=== PATIENT | male | born 1960 | race Two or more races ===

== ENCOUNTER 2017-10-27 16:32 | Emergency (ER) | payer OTHER ==
[~2017-10-27] VITALS: Ht 167.6 cm; Wt 90.7 kg
[2017-10-27 16:38] VITALS: BP 103/61
== END 2017-10-27 18:07 | disposition home or self-care (01) ==
LOC: ER 16:35
DX: M25.562 Pain in left knee (principal); F32.9 Major depressive disorder, single episode, unspecified; F17.200 Nicotine dependence, unspecified, uncomplicated
CPT/HCPCS: 73564-TC; A4606; Z7610

== ENCOUNTER 2020-04-17 12:04 | Emergency (ER) | payer OTHER ==
[~2020-04-17] VITALS: Ht 167.6 cm; Wt 81.6 kg
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
--- NOTE | 2020-04-17 12:20 | NUR ---
MD AT BEDSIDE FOR EVALUATION
[2020-04-17] MEDS ORDERED: ACETAMINOPHEN ES 500 MG TABLET PO ONE (12:30)
--- NOTE | 2020-04-17 12:47 | NUR ---
PC OUT FOR CT
--- NOTE | 2020-04-17 12:59 | NUR ---
PT BACK FROM CT
[2020-04-17 14:20] VITALS: BP 133/67
== END 2020-04-17 14:20 | disposition home or self-care (01) ==
LOC: ER 12:10
DX: M25.462 Effusion, left knee (principal); M25.571 Pain in right ankle and joints of right foot; M54.5 Low back pain; M25.551 Pain in right hip; F32.9 Major depressive disorder, single episode, unspecified; F17.200 Nicotine dependence, unspecified, uncomplicated; Z98.890 Other specified postprocedural states; V09.9XXA Pedestrian injured in unspecified transport accident, initial encounter; Y93.89 Activity, other specified; Y92.89 Other specified places as the place of occurrence of the external cause; Y99.8 Other external cause status
CPT/HCPCS: 73564-TC; 73610-TC

== ENCOUNTER 2020-04-17 14:35 | Emergency (ER) | payer OTHER ==
[~2020-04-17] VITALS: Ht 170.2 cm; Wt 81.6 kg
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
[2020-04-17] MEDS ORDERED: TDAP [DIPH/PERTUSSIS/TET] 0.5 ML VIAL IM ONE ×2 (15:00→15:02)
--- NOTE | 2020-04-17 15:13 | NUR ---
PT OUT FOR CT
--- NOTE | 2020-04-17 16:27 | NUR ---
at bedside for wound care
[2020-04-17 17:02] VITALS: BP 142/78
== END 2020-04-17 17:03 | disposition home or self-care (01) ==
LOC: ER 14:36
DX: S02.2XXA Fracture of nasal bones, initial encounter for closed fracture (principal); S01.21XA Laceration without foreign body of nose, initial encounter; F32.9 Major depressive disorder, single episode, unspecified; F17.200 Nicotine dependence, unspecified, uncomplicated; Z98.890 Other specified postprocedural states; W01.0XXA Fall on same level from slipping, tripping and stumbling without subsequent striking against object, initial encounter; Y93.89 Activity, other specified; Y92.89 Other specified places as the place of occurrence of the external cause; Y99.8 Other external cause status
CPT/HCPCS: 70450-TC; 70486-TC; 72125-TC; 90715

== ENCOUNTER 2020-05-13 10:25 | Emergency (ER) | payer OTHER ==
[~2020-05-13] VITALS: Ht 167.6 cm; Wt 93.9 kg
--- NOTE | 2020-05-13 10:35 | NUR ---
BIB SELF C/O R LEG ABSCESS FOR 1 WEEK. VS CHECKED. STABLE AWAITING MD LING. PT IS AFEBRILE
[2020-05-13 12:13] VITALS: BP 128/86
--- NOTE | 2020-05-13 12:13 | NUR ---
Patient discharged to home in stable condition. Written and verbal after care instructions given. Patient verbalizes understanding of instruction.
== END 2020-05-13 12:14 | disposition home or self-care (01) ==
LOC: ER 10:31
DX: L03.115 Cellulitis of right lower limb (principal); F32.9 Major depressive disorder, single episode, unspecified; F17.200 Nicotine dependence, unspecified, uncomplicated; Z98.890 Other specified postprocedural states; Z59.0 Homelessness

== ENCOUNTER 2020-10-10 12:18 | Emergency (ER) | payer OTHER ==
[~2020-10-10] VITALS: Ht 167.6 cm; Wt 89.4 kg
[2020-10-10] MEDS ORDERED: METH10TA2 PO (12:26)
[2020-10-10] MEDS ORDERED: [UNRECOGNIZED DRUG - REMARK] PO (12:26)
[2020-10-10] MEDS ORDERED: [UNRECOGNIZED DRUG - REMARK] PO (12:26)
--- NOTE | 2020-10-10 12:30 | NUR ---
BIB SELF C/O PRODUCTIVE COUGH FOR 1 WEEK. PATIENT A/OX4, BREATHING EVEN AND UNLABORED, NO SOB NOTED, NEEDS ATTENDED. ON ROOM AIR 96%
--- NOTE | 2020-10-10 12:37 | NUR ---
SEEN AND EXAMINED BY .
[2020-10-10] MEDS ORDERED: predniSONE 20 MG TABLET ONE (12:47)
[2020-10-10] MEDS ORDERED: ALBUTEROL FS 2.5 MG/3 ML VIAL.NEB ONE (12:53)
[2020-10-10] MEDS ORDERED: IPRATROPIUM NEB FS 0.5 MG/2.5 ML AMPUL.NEB ONE (12:53)
[2020-10-10] MEDS ORDERED: ALBUTEROL FS 2.5 MG/3 ML VIAL.NEB NEB ONE (13:00)
[2020-10-10] MEDS ORDERED: IPRATROPIUM NEB FS 0.5 MG/2.5 ML AMPUL.NEB NEB ONE (13:00)
[2020-10-10] MEDS ORDERED: predniSONE 20 MG TABLET PO ONE (13:00)
--- NOTE | 2020-10-10 13:05 | NUR ---
BREATHING TX STARTED
[2020-10-10 13:26] LABS: BASOPHILS % (AUTO) 0.6 % (0.0-2.0); EOSINOPHILS % (AUTO) 2.4 % (0.0-6.0); HEMATOCRIT 38 % (39-51); HEMOGLOBIN 12.5 g/dL (13.5-17.5); LYMPHOCYTES # (AUTO) 1.3 /CMM (0.8-4.8); LYMPHOCYTES % (AUTO) 25.9 % (20.0-44.0); MEAN CORPUSCULAR HGB CONC 33 g/dl (31.0-36.0); MEAN CORPUSCULAR VOLUME 90 fL (80-96); MONOCYTES # (AUTO) 0.2 /CMM (0.1-1.30); MONOCYTES % (AUTO) 4.8 % (2.0-12.0); NEUTROPHILS # (AUTO) 3.3 /CMM (1.8-8.9); NEUTROPHILS % (AUTO) 66.3 % (43.0-81.0); PLATELET COUNT (AUTO) 236 /CMM (150-450); RED BLOOD CELL COUNT(AUTO) 4.22 MIL/uL (4.5-6.0)
[2020-10-10 13:42] LABS: CALCIUM, SERUM 8.5 mg/dL (8.5-10.1); CARBON DIOXIDE 29 mmol/L (21-32); CHLORIDE 104 mmol/L (98-107); CREATININE 0.8 mg/dL (0.6-1.3); GLUCOSE 164 mg/dL (74-106); POTASSIUM 3.8 mmol/L (3.5-5.1); SODIUM SERUM 139 mmol/L (136-145); UREA NITROGEN, BLOOD 13 mg/dL (7-18)
[2020-10-10 13:50] LABS: ALANINE AMINOTRANSFERASE 22 U/L (12-78); ALBUMIN 3.2 g/dL (3.4-5.0); ALKALINE PHOSPHATASE 105 U/L (46-116); ASPARTATE AMINOTRANSFERASE 19 U/L (15-37); B-TYPE NATRIURETIC PEPTIDE 51 PG/ML (0-125); BILIRUBIN,DIRECT 0.1 mg/dL (0.0-0.2); BILIRUBIN,TOTAL 0.2 mg/dL (0.2-1.0); TOTAL PROTEIN, SERUM 7.4 g/dL (6.4-8.2)
[2020-10-10] MEDS ORDERED: PRED20TA PO ×2 (15:15→15:18)
[2020-10-10] MEDS ORDERED: ALBU18HF2 INH (15:15)
[2020-10-10] MEDS ORDERED: AZIT250T13 PO (15:15)
[2020-10-10 15:29] VITALS: BP 114/78
--- NOTE | 2020-10-10 15:29 | NUR ---
Patient breathing even and unlabored, no sob noted. Patient given written and verbal discharge instructions. Patient verbalizes understanding of instructions. Patient is ambulatory with steady gait. Refuses offer of detention placement. Patient given list of available shelters in surrounding area.
== END 2020-10-10 15:30 | disposition home or self-care (01) ==
LOC: ER 12:24
DX: J40 Bronchitis, not specified as acute or chronic (principal); F32.9 Major depressive disorder, single episode, unspecified; Z98.890 Other specified postprocedural states; Z59.0 Homelessness; Z79.899 Other long term (current) drug therapy
CPT/HCPCS: 36415; 71045; 80048; 80076; 83880; 84484; 85025; 93005; 94644; 99285; J7512

== ENCOUNTER 2021-05-20 09:02 | Emergency (ER) | payer OTHER ==
[~2021-05-20] VITALS: Ht 167.6 cm; Wt 72.6 kg
[~2021-05-20 09:02] MED LIST: ALBU18HF2 INH; AZIT250T13 PO; METH10TA2 PO; PRED20TA PO; [UNRECOGNIZED DRUG - REMARK] PO; [UNRECOGNIZED DRUG - REMARK] PO
--- NOTE | 2021-05-20 09:02 | NUR ---
BIBRA 860 C/O ABDOMINAL PAIN X1DAY AND INCREASED PAIN THIS MORNING. PT IS A&OX4, BREATHING IS REGULAR AND UNLABORED. PT VITAL ARE WITHIN NORMAL LIMITS PT WAS ATTACHED TO PULSE OX AND MONITOR. DR NAQVI AT BEDSIDE FOR EVAL.
--- NOTE | 2021-05-20 09:21 | NUR ---
IV INITIATE #20G R AC. LABS WERE COLLECTED AND SENT.
[2021-05-20] MEDS: MORPHINE SULFATE INJ 2 MG/ML DISP.SYRIN IV ONE (09:30)
[2021-05-20] MEDS: ONDANSETRON HCL/PF 4 MG/2 ML VIAL IVP ONE (09:30)
[2021-05-20] MEDS: KETOROLAC TROMETHAMINE INJ 30 MG/ML VIAL IV ONE (09:30)
[2021-05-20] MEDS ORDERED: MORPHINE SULFATE INJ 2 MG/ML DISP.SYRIN ONE (09:52)
[2021-05-20] MEDS ORDERED: ONDANSETRON HCL/PF 4 MG/2 ML VIAL ONE (09:52)
[2021-05-20] MEDS ORDERED: KETOROLAC TROMETHAMINE INJ 30 MG/ML VIAL ONE (09:53)
[2021-05-20 09:55] LABS: BASOPHILS % (AUTO) 0.6 % (0.0-2.0); EOSINOPHILS % (AUTO) 1.6 % (0.0-6.0); HEMATOCRIT 40 % (39-51); HEMOGLOBIN 12.8 g/dL (13.5-17.5); LYMPHOCYTES # (AUTO) 1.3 K/uL (0.8-4.8); LYMPHOCYTES % (AUTO) 16.1 % (20.0-44.0); MEAN CORPUSCULAR HGB CONC 32 g/dl (31.0-36.0); MEAN CORPUSCULAR VOLUME 90 fL (80-96); MONOCYTES # (AUTO) 0.5 K/uL (0.1-1.30); MONOCYTES % (AUTO) 6.2 % (2.0-12.0); NEUTROPHILS # (AUTO) 6.1 K/uL (1.8-8.9); NEUTROPHILS % (AUTO) 75.5 % (43.0-81.0); PLATELET COUNT (AUTO) 310 K/uL (150-450); RED BLOOD CELL COUNT(AUTO) 4.41 MIL/uL (4.5-6.0)
--- NOTE | 2021-05-20 09:57 | NUR ---
PT TAKEN TO CT
[2021-05-20 10:14] LABS: CALCIUM, SERUM 8.7 mg/dL (8.5-10.1); CREATININE 0.7 mg/dL (0.6-1.3); POTASSIUM 3.9 mmol/L (3.5-5.1)
[2021-05-20 10:20] LABS: ALBUMIN 3.5 g/dL (3.4-5.0); BILIRUBIN,DIRECT 0.1 mg/dL (0.0-0.2); BILIRUBIN,TOTAL 0.3 mg/dL (0.2-1.0); TOTAL PROTEIN, SERUM 8.8 g/dL (6.4-8.2)
--- NOTE | 2021-05-20 10:44 | NUR ---
DR NAQVI AT BEDSIDE
[2021-05-20] MEDS ORDERED: HYDROMORPHONE 1 MG/1 ML DISP.SYRIN ONE (10:49)
[2021-05-20] MEDS: HYDROMORPHONE 1 MG/1 ML DISP.SYRIN IV ONE (10:55)
[2021-05-20 11:02] LABS: BILIRUBIN,URINE NEGATIVE (NEGATIVE); COLOR,URINE YELLOW (YELLOW); LEUKOCYTE ESTERASE ,URINE NEGATIVE (NEGATIVE); NITRITE, URINE NEGATIVE (NEGATIVE); PH,URINE 8.5 (5.0-8.0); PROTEIN,URINE NEGATIVE (NEGATIVE); UGLUCOSE NEGATIVE (NEGATIVE)
--- NOTE | 2021-05-20 11:20 | NUR ---
IV removed. Catheter intact and site benign. Pressure and 4x4 applied to site. No bleeding noted.Patient discharged to home in stable condition. Written and verbal after care instructions given. Patient verbalizes understanding of instruction.
[2021-05-20 11:23] VITALS: BP 127/73
[2021-05-20 13:07] LABS: BACTERIA,URINE Few /HPF (None Seen); RBC,URINE NONE SEEN /HPF (0-2); URINE AMORPHOUS PHOSPHATES Many /HPF (None Seen); WBC,URINE 0-2 /HPF (0-3)
[2021-05-20 13:08] LABS: SQUAMOUS EPITHELIAL CELL,UR Moderate /HPF (None Seen)
== END 2021-05-20 11:24 | disposition admitted as inpatient to this hospital (09) ==
LOC: ER 09:07
DX: R10.31 Right lower quadrant pain (principal); K43.9 Ventral hernia without obstruction or gangrene; F32.9 Major depressive disorder, single episode, unspecified; F17.200 Nicotine dependence, unspecified, uncomplicated; Z98.890 Other specified postprocedural states; Z59.00 Homelessness unspecified; Z79.899 Other long term (current) drug therapy
CPT/HCPCS: 36415; 74176; 80048; 80076; 81001; 85025; 96374; 96375; 99284; J1170; J1885; J2270; J2405

== ENCOUNTER 2021-06-23 09:41 | Emergency (ER) | payer OTHER ==
[~2021-06-23] VITALS: Ht 167.6 cm; Wt 77.1 kg
[2021-06-23 09:57] VITALS: BP 142/102
[2021-06-23] MEDS ORDERED: NALO4SPR NS (10:27)
[2021-06-23] MEDS ORDERED: SULF1TAB48 PO (10:27)
[2021-06-23] MEDS ORDERED: CEPH500C2 PO (10:27)
[2021-06-23] MEDS ORDERED: KETOROLAC TROMETHAMINE 15 MG/ML VIAL ONE (10:30)
[2021-06-23] MEDS ORDERED: KETOROLAC TROMETHAMINE INJ 30 MG/ML VIAL IM ONE (10:30)
== END 2021-06-23 10:37 | disposition home or self-care (01) ==
LOC: ER 09:50
DX: L03.113 Cellulitis of right upper limb (principal); L02.413 Cutaneous abscess of right upper limb; F11.90 Opioid use, unspecified, uncomplicated; F32.9 Major depressive disorder, single episode, unspecified; Z79.52 Long term (current) use of systemic steroids; Z79.2 Long term (current) use of antibiotics; Z59.00 Homelessness unspecified
CPT/HCPCS: 76536; 96372; 99284; 99406; J1885

== ENCOUNTER 2021-09-11 20:34 | Emergency (ER) | payer OTHER ==
[~2021-09-11] VITALS: Ht 167.6 cm; Wt 63.5 kg
[~2021-09-11 20:34] MED LIST changes: +CEPH500C2 PO; +NALO4SPR NS; +SULF1TAB48 PO
[2021-09-11 21:33] VITALS: BP 120/70
[2021-09-11] MEDS ORDERED: NALO4SPR BNOSTRILS (21:39)
== END 2021-09-11 21:46 | disposition home or self-care (01) ==
LOC: ER 20:39
DX: F22 Delusional disorders (principal); F32.A Depression, unspecified; F19.10 Other psychoactive substance abuse, uncomplicated; F17.200 Nicotine dependence, unspecified, uncomplicated; Z87.828 Personal history of other (healed) physical injury and trauma; Z87.74 Personal history of (corrected) congenital malformations of heart and circulatory system; Z59.00 Homelessness unspecified; Z79.52 Long term (current) use of systemic steroids; Z79.51 Long term (current) use of inhaled steroids; Z79.899 Other long term (current) drug therapy

== ENCOUNTER 2023-11-21 12:34 | Emergency (ER) | payer OTHER ==
[~2023-11-21] VITALS: Ht 167.6 cm; Wt 77.6 kg
[~2023-11-21 12:34] MED LIST changes: +NALO4SPR BNOSTRILS
[2023-11-21] MEDS ORDERED: ACETAMINOPHEN ES 500 MG TABLET ONE (13:05)
[2023-11-21] MEDS: ACETAMINOPHEN ES 500 MG TABLET PO ONE (13:07)
[2023-11-21 15:37] VITALS: BP 141/86; TEMP 98.4; O2SAT 97
== END 2023-11-21 15:00 | disposition home or self-care (01) ==
LOC: ER 12:39
DX: M79.18 Myalgia, other site (principal); F22 Delusional disorders; E11.9 Type 2 diabetes mellitus without complications; F32.A Depression, unspecified; F17.200 Nicotine dependence, unspecified, uncomplicated; Z60.2 Problems related to living alone